=== PATIENT | male | born 1975 | race African-American/Black ===

== ENCOUNTER 2017-10-21 09:22 | Inpatient (IN) | payer OTHER ==
[~2017-10-21] VITALS: Ht 180.3 cm; Wt 120.4 kg
[~2017-10-21 09:22] MED LIST: ALBU8HFA IH; ARIP2 PO; CITA10TA68 PO; LISI-661 PO; LORA10TA7 PO
[2017-10-21] MEDS ORDERED: SODIUM CHLORIDE 0.9% 1,000 ML IV ONE (10:30)
[2017-10-21 10:39] LABS: APPEARANCE,URINE CLEAR (CLEAR); BILIRUBIN,URINE NEGATIVE (NEGATIVE); GLUCOSE, URINE (UA) NEGATIVE (NEGATIVE); KETONES,URINE TRACE mg/dL (NEGATIVE); LEUKOCYTE ESTERASE ,URINE NEGATIVE (NEGATIVE); NITRATE,URINE NEGATIVE (NEGATIVE); OCCULT BLOOD,URINE TRACE (NEGATIVE); PROTEIN,URINE SEE CONFIRM (NEGATIVE)
[2017-10-21 10:42] LABS: SULFOSALICYLIC ACID,URINE 2+ (Negative)
[2017-10-21 10:48] LABS: BACTERIA,URINE None Seen /HPF (None Seen); RBC,URINE 0-2 /HPF (0-2); WBC,URINE 0-2 /HPF (0-5)
[2017-10-21 10:49] LABS: HYALINE CASTS, URINE 0-2 /LPF (None Seen)
[2017-10-21 11:12] LABS: BASOPHILS % (AUTO) 0.7 % (0.0-2.0); EOSINOPHILS % (AUTO) 6.4 % (1.0-6.0); HEMATOCRIT 38.2 % (41-53); HEMOGLOBIN 12.9 g/dL (13.5-17.5); LYMPHOCYTES # (AUTO) 1.1 K/uL (1.0-4.8); LYMPHOCYTES % (AUTO) 38.5 % (22.0-44.0); MEAN CORPUSCULAR HEMOGLOBIN 28.2 pg (26.0-34.0); MEAN CORPUSCULAR HGB CONC 33.9 G/dL (31.0-37.0); MEAN CORPUSCULAR VOLUME 83 fL (80-100); MONOCYTES # (AUTO) 0.3 K/uL (0.1-1.0); NEUTROPHILS # (AUTO) 1.2 K/uL (1.8-7.7); NEUTROPHILS % (AUTO) 42.4 % (40.0-70.0); PLATELET COUNT (AUTO) 160 K/uL (150-450); RED BLOOD CELL COUNT(AUTO) 4.58 MIL/uL (4.50-5.90); RED CELL DISTRIBUTION WIDTH 13.5 % (11.5-14.5)
[2017-10-21] MEDS ORDERED: LORazepam 2 MG TABLET PO ONE (11:15)
[2017-10-21] MEDS ORDERED: DiphenhydrAMINE HCL 25 MG CAPSULE PO ONE (11:15)
[2017-10-21] MEDS ORDERED: HALOPERIDOL 5 MG TABLET PO ONE (11:15)
[2017-10-21 11:31] LABS: ANION GAP 11 mmol/L (8-16); CALCIUM, TOTAL 8.5 mg/dL (8.8-10.5); CARBON DIOXIDE 24 mmol/L (22-29); CHLORIDE 99 mmol/L (98-107); CREATININE 1.14 mg/dL (0.60-1.30); GLOMERULAR FILTR. RATE CALC > 60 mL/min (>60); GLUCOSE,RANDOM 99 mg/dL (70-110); POTASSIUM 4.1 mmol/L (3.5-5.1); SODIUM SERUM 134 mmol/L (136-145); UREA NITROGEN, BLOOD 16 mg/dL (7-18)
[2017-10-21 11:39] LABS: ALANINE AMINOTRANSFERASE 378 U/L (12-78); ALBUMIN 3.7 g/dL (3.4-5.0); ASPARTATE AMINOTRANSFERASE 396 U/L (15-37); BILIRUBIN,TOTAL 0.3 mg/dL (0.1-1.0); TOTAL PROTEIN, SERUM 7.9 g/dL (6.4-8.2)
[2017-10-21] MEDS ORDERED: LORazepam 2 MG TABLET PO PRN ×2 (12:00→18:30)
[2017-10-21] MEDS ORDERED: HALOPERIDOL 5 MG TABLET PO PRN (12:00)
[2017-10-21] MEDS ORDERED: ZOLPIDEM TARTRATE 10 MG TABLET PO PRN (12:00)
[2017-10-21 12:32] LABS: AMPHET/METH SCREEN,URINE NEGATIVE (NEGATIVE); BARBITURATE SCREEN, URINE NEGATIVE (NEGATIVE); BENZODIAZEPINES SCREEN,URINE NEGATIVE (NEGATIVE); CANNABINOID SCREEN,URINE NEGATIVE (NEGATIVE); COCAINE SCREEN,URINE NEGATIVE (NEGATIVE); METHADONE SCREEN, URINE NEGATIVE (NEGATIVE); OPIATE SCREEN,URINE NEGATIVE (NEGATIVE)
[2017-10-21 12:33] LABS: PHENCYCLIDINE SCREEN,URINE NEGATIVE (NEGATIVE)
[2017-10-21 13:29] LABS: ALKALINE PHOSPHATASE 47 U/L (46-116)
[2017-10-21] MEDS ORDERED: MAGNESIUM SULFATE 2 GM, MVI, ADULT NO.1 WITH VIT K 10 ML, THIAMINE HCL 100 MG, FOLIC AC... IV ONE ×10 (14:00→15:45)
[2017-10-21] MEDS ORDERED: BISACODYL 10 MG RECTAL RECTAL SUPPOSITORY PR PRN (15:45)
[2017-10-21] MEDS ORDERED: MAGNESIUM HYDROXIDE SUSPENSION 30 ML UDCUP PO PRN (15:45)
[2017-10-21] MEDS ORDERED: MORPHINE SULFATE 4 MG/ML SYRINGE IVP PRN (15:45)
[2017-10-21] MEDS ORDERED: ONDANSETRON HCL 4 MG/2 ML VIAL IVP PRN (15:45)
[2017-10-21] MEDS ORDERED: LORazepam 2 MG/ML VIAL IVP PRN (15:45)
[2017-10-21] MEDS: HEPARIN SODIUM,PORCINE 5,000 UNITS/ML VIAL SQ SCH ×2 (17:15→23:08)
[2017-10-21 17:57] VITALS: BP 158/75
[2017-10-21] MEDS ORDERED: GuaiFENesin/D-METHORPHAN [SUGAR-FREE] 200-20MG/10 ML SYRUP UDCUP PO PRN (18:30)
[2017-10-21] MEDS ORDERED: HydrOXYzine PAMOATE 50 MG CAPSULE PO PRN (18:30)
[2017-10-21] MEDS ORDERED: CYANOCOBALAMIN 1,000 MCG/ML VIAL IM ONE (18:30)
[2017-10-21] MEDS ORDERED: LOPERAMIDE HCL 2 MG CAPSULE PO PRN (18:30)
[2017-10-21] MEDS: DOCUSATE SODIUM 100 MG CAPSULE PO SCH (19:38)
[2017-10-21] MEDS: THIAMINE HCL 100 MG TABLET PO SCH (19:38)
[2017-10-21] MEDS: OLANZapine 5 MG TABLET PO SCH (19:38)
[2017-10-21 19:42] VITALS: BP 146/79
[2017-10-21] MEDS ORDERED: -PHARMACY VACCINE NOTE- MISC ONE (19:45)
[2017-10-22] VITALS (7 sets, daily range): BP systolic 123–151; BP diastolic 77–95
[2017-10-22] MEDS: ZOLPIDEM TARTRATE 5 MG TABLET PO PRN ×2 (01:18→21:28)
[2017-10-22] MEDS: ACETAMINOPHEN 325 MG TABLET PO PRN (03:57)
[2017-10-22] MEDS: HYDROCODONE/ACETAMINOPHEN 5-325 MG TABLET PO PRN ×2 (06:55→21:28)
[2017-10-22] MEDS ORDERED: LORazepam 2 MG TABLET PO PRN (07:00)
[2017-10-22] MEDS: PANTOPRAZOLE SODIUM 40 MG DR TABLET PO SCH (09:09)
[2017-10-22] MEDS: THIAMINE HCL 100 MG TABLET PO SCH ×2 (09:09→21:27)
[2017-10-22] MEDS: DOCUSATE SODIUM 100 MG CAPSULE PO SCH ×2 (09:09→21:27)
[2017-10-22] MEDS: HEPARIN SODIUM,PORCINE 5,000 UNITS/ML VIAL SQ SCH (09:09)
[2017-10-22] MEDS: FOLIC ACID 1 MG TABLET PO SCH (09:09)
[2017-10-22] MEDS: LORazepam 2 MG TABLET PO SCH ×4 (09:09→21:27)
[2017-10-22] MEDS: FLUoxetine HCL 20 MG CAPSULE PO SCH (09:10)
[2017-10-22] MEDS: MULTIVITAMINS WITH MINERALS, THERAPEUTIC TABLET PO SCH (09:10)
[2017-10-22] MEDS ORDERED: MAGNESIUM SULFATE 2 GM, MVI, ADULT NO.1 WITH VIT K 10 ML, THIAMINE HCL 100 MG, FOLIC AC... IV ONE ×5 (13:00)
[2017-10-22 14:37] LABS: CREATINE KINASE MB 0.5 ng/mL (0-5); CREATINE KINASE, TOTAL 265 U/L (39-308)
[2017-10-22 16:03] LABS: APPEARANCE,URINE CLEAR (CLEAR); BILIRUBIN,URINE NEGATIVE (NEGATIVE); GLUCOSE, URINE (UA) NEGATIVE (NEGATIVE); KETONES,URINE NEGATIVE (NEGATIVE); LEUKOCYTE ESTERASE ,URINE NEGATIVE (NEGATIVE); NITRATE,URINE NEGATIVE (NEGATIVE); OCCULT BLOOD,URINE NEGATIVE (NEGATIVE); PROTEIN,URINE NEGATIVE (NEGATIVE)
[2017-10-22] MEDS: ChlordiazePOXIDE HCL 25 MG CAPSULE PO SCH (16:33)
[2017-10-22] MEDS: OLANZapine 5 MG TABLET PO SCH (21:29)
[2017-10-23] MEDS: ChlordiazePOXIDE HCL 25 MG CAPSULE PO SCH ×4 (00:14→23:04)
[2017-10-23 04:34] VITALS: BP 145/90
[2017-10-23] MEDS: HYDROCODONE/ACETAMINOPHEN 5-325 MG TABLET PO PRN (06:33)
[2017-10-23 07:13] VITALS: BP 142/100
[2017-10-23] MEDS: THIAMINE HCL 100 MG TABLET PO SCH ×2 (08:35→20:42)
[2017-10-23] MEDS: DOCUSATE SODIUM 100 MG CAPSULE PO SCH ×2 (08:35→20:42)
[2017-10-23] MEDS: FLUoxetine HCL 20 MG CAPSULE PO SCH (08:36)
[2017-10-23] MEDS: FOLIC ACID 1 MG TABLET PO SCH (08:36)
[2017-10-23] MEDS: PANTOPRAZOLE SODIUM 40 MG DR TABLET PO SCH (08:36)
[2017-10-23] MEDS: LORazepam 2 MG TABLET PO SCH ×4 (08:36→20:42)
[2017-10-23] MEDS: MULTIVITAMINS WITH MINERALS, THERAPEUTIC TABLET PO SCH (09:19)
[2017-10-23 11:16] VITALS: BP 158/95
[2017-10-23 15:20] VITALS: BP 145/101
[2017-10-23 19:30] VITALS: BP 135/90
[2017-10-23] MEDS: METOPROLOL TARTRATE 25 MG TABLET PO SCH (20:42)
[2017-10-23] MEDS: OLANZapine 5 MG TABLET PO SCH (20:42)
[2017-10-23 23:00] VITALS: BP 139/100
[2017-10-24] MEDS: ZOLPIDEM TARTRATE 5 MG TABLET PO PRN (02:21)
[2017-10-24 04:15] VITALS: BP 134/98
[2017-10-24] MEDS ORDERED: LORazepam 1 MG TABLET PO PRN (07:00)
[2017-10-24 08:03] VITALS: BP 146/103
[2017-10-24] MEDS: PANTOPRAZOLE SODIUM 40 MG DR TABLET PO SCH (08:20)
[2017-10-24] MEDS: ChlordiazePOXIDE HCL 25 MG CAPSULE PO SCH ×3 (08:20→23:50)
[2017-10-24] MEDS: METOPROLOL TARTRATE 25 MG TABLET PO SCH ×2 (08:20→21:07)
[2017-10-24] MEDS: FOLIC ACID 1 MG TABLET PO SCH (08:20)
[2017-10-24] MEDS: LORazepam 1 MG TABLET PO SCH ×2 (08:21→13:00)
[2017-10-24] MEDS: FLUoxetine HCL 20 MG CAPSULE PO SCH (08:22)
[2017-10-24] MEDS: THIAMINE HCL 100 MG TABLET PO SCH ×2 (08:22→21:06)
[2017-10-24] MEDS: MULTIVITAMINS WITH MINERALS, THERAPEUTIC TABLET PO SCH (08:22)
[2017-10-24] MEDS: ACETAMINOPHEN 325 MG TABLET PO PRN (08:24)
[2017-10-24] MEDS: DOCUSATE SODIUM 100 MG CAPSULE PO SCH ×2 (08:27→21:00)
[2017-10-24 11:25] VITALS: BP 124/73
[2017-10-24] MEDS: HYDROCODONE/ACETAMINOPHEN 5-325 MG TABLET PO PRN ×2 (11:52→23:52)
[2017-10-24 13:44] LABS: APPEARANCE,URINE CLEAR (CLEAR); BILIRUBIN,URINE NEGATIVE (NEGATIVE); GLUCOSE, URINE (UA) NEGATIVE (NEGATIVE); KETONES,URINE NEGATIVE (NEGATIVE); LEUKOCYTE ESTERASE ,URINE NEGATIVE (NEGATIVE); NITRATE,URINE NEGATIVE (NEGATIVE); OCCULT BLOOD,URINE NEGATIVE (NEGATIVE); PROTEIN,URINE NEGATIVE (NEGATIVE); UROBILINOGEN,URINE 0.2 mg/dL (<=1.0)
[2017-10-24 13:58] LABS: BACTERIA,URINE None Seen /HPF (None Seen); RBC,URINE None Seen /HPF (0-2); SQUAMOUS EPITHELIAL CELL,UR Rare /LPF (None Seen); WBC,URINE 0-2 /HPF (0-5)
[2017-10-24] MEDS ORDERED: SODIUM CHLORIDE 0.9% 100 ML ONE (15:47)
[2017-10-24 16:36] VITALS: BP 123/93
[2017-10-24] MEDS: CIPROFLOXACIN 400 MG/D5% WATER 200 ML IV SCH (17:11)
[2017-10-24 19:59] VITALS: BP 123/95
[2017-10-24] MEDS: OLANZapine 5 MG TABLET PO SCH (21:07)
[2017-10-24 23:54] VITALS: BP 138/89
[2017-10-25] MEDS: ACETAMINOPHEN 325 MG TABLET PO PRN (02:48)
[2017-10-25] MEDS: CIPROFLOXACIN 400 MG/D5% WATER 200 ML IV SCH ×2 (04:14→15:11)
[2017-10-25 05:05] VITALS: BP 119/74
[2017-10-25 06:59] LABS: BASOPHILS % (AUTO) 0.8 % (0.0-2.0); EOSINOPHILS % (AUTO) 7.5 % (1.0-6.0); HEMATOCRIT 35.3 % (41-53); HEMOGLOBIN 11.8 g/dL (13.5-17.5); LYMPHOCYTES # (AUTO) 1.2 K/uL (1.0-4.8); LYMPHOCYTES % (AUTO) 36.9 % (22.0-44.0); MEAN CORPUSCULAR HEMOGLOBIN 28.7 pg (26.0-34.0); MEAN CORPUSCULAR HGB CONC 33.4 G/dL (31.0-37.0); MEAN CORPUSCULAR VOLUME 86 fL (80-100); MONOCYTES # (AUTO) 0.4 K/uL (0.1-1.0); MONOCYTES % (AUTO) 12.5 % (2.0-9.0); NEUTROPHILS # (AUTO) 1.4 K/uL (1.8-7.7); NEUTROPHILS % (AUTO) 42.3 % (40.0-70.0); PLATELET COUNT (AUTO) 179 K/uL (150-450); RED BLOOD CELL COUNT(AUTO) 4.11 MIL/uL (4.50-5.90)
[2017-10-25] MEDS ORDERED: LORazepam 1 MG TABLET PO PRN (07:00)
[2017-10-25 07:12] LABS: ANION GAP 6 mmol/L (8-16); CALCIUM, TOTAL 9.3 mg/dL (8.8-10.5); CARBON DIOXIDE 29 mmol/L (22-29); CHLORIDE 103 mmol/L (98-107); CREATININE 1.28 mg/dL (0.60-1.30); GLOMERULAR FILTR. RATE CALC > 60 mL/min (>60); GLUCOSE,RANDOM 93 mg/dL (70-110); POTASSIUM 4.3 mmol/L (3.5-5.1); SODIUM SERUM 138 mmol/L (136-145); UREA NITROGEN, BLOOD 16 mg/dL (7-18)
[2017-10-25 07:15] VITALS: BP 143/98
[2017-10-25] MEDS: FLUoxetine HCL 20 MG CAPSULE PO SCH (08:27)
[2017-10-25] MEDS: FOLIC ACID 1 MG TABLET PO SCH (08:27)
[2017-10-25] MEDS: THIAMINE HCL 100 MG TABLET PO SCH ×2 (08:27→20:57)
[2017-10-25] MEDS: MULTIVITAMINS WITH MINERALS, THERAPEUTIC TABLET PO SCH (08:28)
[2017-10-25] MEDS: ChlordiazePOXIDE HCL 25 MG CAPSULE PO SCH ×2 (08:28→17:12)
[2017-10-25] MEDS: METOPROLOL TARTRATE 25 MG TABLET PO SCH ×2 (08:28→20:57)
[2017-10-25] MEDS: PANTOPRAZOLE SODIUM 40 MG DR TABLET PO SCH (08:28)
[2017-10-25] MEDS: DOCUSATE SODIUM 100 MG CAPSULE PO SCH ×2 (08:33→20:57)
[2017-10-25 11:05] VITALS: BP 135/86
[2017-10-25] MEDS ORDERED: MAGNESIUM SULFATE 2 GM, MVI, ADULT NO.1 WITH VIT K 10 ML, THIAMINE HCL 100 MG, FOLIC AC... IV ONE ×5 (13:15)
[2017-10-25] MEDS: HYDROCODONE/ACETAMINOPHEN 5-325 MG TABLET PO PRN (13:29)
[2017-10-25] MEDS ORDERED: SODIUM CHLORIDE 0.9% 500 ML IV ONE (15:08)
[2017-10-25 15:38] VITALS: BP 114/68
[2017-10-25] MEDS: CLINDAMYCIN 600 MG/D5% WATER 50 ML IV SCH (18:20)
[2017-10-25 19:22] VITALS: BP 112/69
[2017-10-25] MEDS: OLANZapine 5 MG TABLET PO SCH (20:57)
[2017-10-25 23:07] VITALS: BP 130/88
[2017-10-26] MEDS: ChlordiazePOXIDE HCL 25 MG CAPSULE PO SCH ×2 (00:04→08:15)
[2017-10-26] MEDS: CLINDAMYCIN 600 MG/D5% WATER 50 ML IV SCH ×2 (00:04→06:33)
[2017-10-26 02:24] VITALS: BP 145/96
[2017-10-26] MEDS: HYDROCODONE/ACETAMINOPHEN 5-325 MG TABLET PO PRN ×2 (02:29→09:48)
[2017-10-26] MEDS: CIPROFLOXACIN 400 MG/D5% WATER 200 ML IV SCH (04:01)
[2017-10-26 04:51] VITALS: BP 136/78
[2017-10-26 07:17] VITALS: BP 143/94
[2017-10-26] MEDS: FOLIC ACID 1 MG TABLET PO SCH (08:16)
[2017-10-26] MEDS: DOCUSATE SODIUM 100 MG CAPSULE PO SCH (08:16)
[2017-10-26] MEDS: THIAMINE HCL 100 MG TABLET PO SCH (08:16)
[2017-10-26] MEDS: METOPROLOL TARTRATE 25 MG TABLET PO SCH (08:16)
[2017-10-26] MEDS: PANTOPRAZOLE SODIUM 40 MG DR TABLET PO SCH (08:16)
[2017-10-26] MEDS: MULTIVITAMINS WITH MINERALS, THERAPEUTIC TABLET PO SCH (08:17)
[2017-10-26] MEDS: FLUoxetine HCL 20 MG CAPSULE PO SCH (08:17)
[2017-10-26] MEDS ORDERED: CIP250 PO (11:20)
[2017-10-26] MEDS ORDERED: CLIN300C3 PO (11:21)
[2017-10-26] MEDS ORDERED: CIPR500S5 PO (11:30)
[2017-10-26] MEDS ORDERED: OLAN5TAB2 PO (11:33)
[2017-10-26] MEDS ORDERED: METO25 PO (11:33)
[2017-10-26] MEDS ORDERED: THIA1002I IM (11:34)
[2017-10-26 11:36] VITALS: BP 128/83
[2017-10-26] MEDS ORDERED: PROZ10 PO (11:37)
[2017-10-26] MEDS ORDERED: LIB5 PO (11:38)
== END 2017-10-26 11:45 | disposition home or self-care (01) | DRG 775 ==
LOC: EMS 09:23 → 5S 15:35
PROVIDERS: ADMIT Internal Medicine; ATTEND Internal Medicine
PROC: 5A09357 Assistance with Respiratory Ventilation, Less than 24 Consecutive Hours, Continuous Positive Airway Pressure (ICD-10-PCS; principal; 2017-10-24)
PROC: 5A09357 Assistance with Respiratory Ventilation, Less than 24 Consecutive Hours, Continuous Positive Airway Pressure (ICD-10-PCS; 2017-10-25)
PROC: 5A09357 Assistance with Respiratory Ventilation, Less than 24 Consecutive Hours, Continuous Positive Airway Pressure (ICD-10-PCS; 2017-10-26)
DX: F10.229 Alcohol dependence with intoxication, unspecified (principal); F10.239 Alcohol dependence with withdrawal, unspecified; J69.0 Pneumonitis due to inhalation of food and vomit; G92 Toxic encephalopathy; R45.851 Suicidal ideations; K70.10 Alcoholic hepatitis without ascites; F25.0 Schizoaffective disorder, bipolar type; I10 Essential (primary) hypertension; R00.0 Tachycardia, unspecified; J45.909 Unspecified asthma, uncomplicated; D72.819 Decreased white blood cell count, unspecified; D64.9 Anemia, unspecified; M54.9 Dorsalgia, unspecified; F32.9 Major depressive disorder, single episode, unspecified; E86.0 Dehydration; F41.9 Anxiety disorder, unspecified; Y90.8 Blood alcohol level of 240 mg/100 ml or more; F17.210 Nicotine dependence, cigarettes, uncomplicated; Z59.0 Homelessness; Z91.018 Allergy to other foods; Z79.899 Other long term (current) drug therapy; Z91.5 Personal history of self-harm
CPT/HCPCS: 87040; 87070; 87205; 93005; 93306; 94660; 96365; 96366; 97161; 99285; G0480; J0744; J1644; J2060; J3411; J3420; J3475; J3490; J7030; J7040; J7050

== ENCOUNTER 2017-11-03 10:04 | Emergency (ER) | payer OTHER ==
[~2017-11-03] VITALS: Ht 180.3 cm; Wt 113.6 kg
[~2017-11-03 10:04] MED LIST changes: +CIP250 PO; +CIPR500S5 PO; +CLIN300C3 PO; +LIB5 PO; +METO25 PO; +OLAN5TAB2 PO; +PROZ10 PO
[2017-11-03 12:09] LABS: BASOPHILS % (AUTO) 1.8 % (0.0-2.0); EOSINOPHILS % (AUTO) 5.6 % (1.0-6.0); HEMATOCRIT 35.7 % (41-53); LYMPHOCYTES # (AUTO) 1.2 K/uL (1.0-4.8); LYMPHOCYTES % (AUTO) 29.7 % (22.0-44.0); MEAN CORPUSCULAR HEMOGLOBIN 28.6 pg (26.0-34.0); MEAN CORPUSCULAR HGB CONC 33.7 G/dL (31.0-37.0); MEAN CORPUSCULAR VOLUME 85 fL (80-100); MONOCYTES # (AUTO) 0.6 K/uL (0.1-1.0); MONOCYTES % (AUTO) 14.8 % (2.0-9.0); NEUTROPHILS % (AUTO) 48.1 % (40.0-70.0); PLATELET COUNT (AUTO) 436 K/uL (150-450); RED CELL DISTRIBUTION WIDTH 14.7 % (11.5-14.5)
[2017-11-03 12:20] LABS: ANION GAP 10 mmol/L (8-16); CALCIUM, TOTAL 8.7 mg/dL (8.8-10.5); CARBON DIOXIDE 27 mmol/L (22-29); CHLORIDE 103 mmol/L (98-107); CREATININE 1.17 mg/dL (0.60-1.30); GLOMERULAR FILTR. RATE CALC > 60 mL/min (>60); GLUCOSE,RANDOM 88 mg/dL (70-110); POTASSIUM 3.7 mmol/L (3.5-5.1); SODIUM SERUM 140 mmol/L (136-145); UREA NITROGEN, BLOOD 14 mg/dL (7-18)
[2017-11-03 12:21] LABS: APPEARANCE,URINE CLEAR (CLEAR); BILIRUBIN,URINE NEGATIVE (NEGATIVE); GLUCOSE, URINE (UA) NEGATIVE (NEGATIVE); KETONES,URINE NEGATIVE (NEGATIVE); LEUKOCYTE ESTERASE ,URINE NEGATIVE (NEGATIVE); NITRATE,URINE NEGATIVE (NEGATIVE); OCCULT BLOOD,URINE NEGATIVE (NEGATIVE); PH,URINE 5.5 (5.0-8.0); PROTEIN,URINE NEGATIVE (NEGATIVE); UROBILINOGEN,URINE 0.2 mg/dL (<=1.0)
[2017-11-03 12:26] LABS: AMPHET/METH SCREEN,URINE NEGATIVE (NEGATIVE); BARBITURATE SCREEN, URINE NEGATIVE (NEGATIVE); BENZODIAZEPINES SCREEN,URINE POSITIVE (NEGATIVE); CANNABINOID SCREEN,URINE NEGATIVE (NEGATIVE); COCAINE SCREEN,URINE NEGATIVE (NEGATIVE); METHADONE SCREEN, URINE NEGATIVE (NEGATIVE); OPIATE SCREEN,URINE NEGATIVE (NEGATIVE)
[2017-11-03 12:32] LABS: B-TYPE NATRIURETIC PEPTIDE 14 pg/mL (0-100)
[2017-11-03 12:33] LABS: PHENCYCLIDINE SCREEN,URINE NEGATIVE (NEGATIVE)
[2017-11-03 13:10] LABS: ALANINE AMINOTRANSFERASE 267 U/L (12-78); ALBUMIN 3.6 g/dL (3.4-5.0); ALKALINE PHOSPHATASE 44 U/L (46-116); ASPARTATE AMINOTRANSFERASE 134 U/L (15-37); BILIRUBIN,TOTAL 0.5 mg/dL (0.1-1.0); CREATINE KINASE, TOTAL 82 U/L (39-308); TOTAL PROTEIN, SERUM 8.1 g/dL (6.4-8.2)
[2017-11-03 13:11] LABS: CREATINE KINASE MB < 0.5 ng/mL (0-5)
[2017-11-03 14:32] VITALS: BP 148/88
== END 2017-11-03 14:34 | disposition home or self-care (01) ==
LOC: EMS 10:06
DX: R60.0 Localized edema (principal); R74.0 Nonspecific elevation of levels of transaminase and lactic acid dehydrogenase [LDH]; M79.89 Other specified soft tissue disorders; F17.210 Nicotine dependence, cigarettes, uncomplicated; Z91.018 Allergy to other foods
CPT/HCPCS: 85379; 93005; 93970; 99285